=== PATIENT | female | born 1960 | race Hispanic/Latino ===

== ENCOUNTER 2017-08-13 11:12 | Outpatient (CLI) | payer OTHER ==
--- NOTE | 2017-08-14 08:26 | Ultrasound Report ---
RENAL ULTRASOUND: 08/13/17 CLINICAL: Hematuria. FINDINGS: High resolution ultrasound demonstrated normal renal collecting systems. Normal echogenicity of the kidneys. A cyst in the midportion of the right kidney measures 2.3 x 2.3 x 2.0 cm. A cyst in the lower pole the left kidney measures 1.9 x 1.9 x 1.3 cm. No solid mass or calculus. The right kidney measures 11.8 x 6.4 x 5.4-cm. The renal parenchyma measures 1.5-cm in thickness. The left kidney measures 13.0 x 6.2 x 6.0-cm. The renal parenchyma measures 1.7-cm in thickness. Mildly distended and normal urinary bladder. IMPRESSION: Bilateral benign renal cysts.
== END 2017-08-13 11:13 | disposition home or self-care (01) ==
LOC: SPVWC 11:12
PROVIDERS: ATTEND Internal Medicine
DX: N28.1 Cyst of kidney, acquired (principal); R31.9 Hematuria, unspecified
CPT/HCPCS: 76770

== ENCOUNTER 2017-09-12 13:05 | Outpatient (CLI) | payer OTHER ==
--- NOTE | 2017-09-12 16:08 | Mammography Report ---
BILATERAL DIGITAL SCREENING MAMMOGRAM with CAD: 09/12/17 13:05:00 CLINICAL: Routine screening. COMPARISON:06/23/16 FINDINGS: The breasts are heterogeneously dense, which may obscure small masses. No mass, architectural distortion or suspicious calcifications. IMPRESSION: No mammographic evidence of malignancy. BI-RADS CATEGORY: 1 - - Negative RECOMMENDATION: Routine mammographic screening in one year. COMMENT: Patient follow-up letters are generated by our [employer] application.
== END 2017-09-12 13:06 | disposition home or self-care (01) ==
LOC: SPVWC 13:05
PROVIDERS: ATTEND Internal Medicine
DX: Z12.31 Encounter for screening mammogram for malignant neoplasm of breast (principal)
CPT/HCPCS: 77067; G0202